=== PATIENT | male | born 1935 | race Caucasian/White ===

== ENCOUNTER 2020-02-15 09:00 | Outpatient (CLI) | payer MEDICARE, OTHER | END 2020-02-15 23:59 | disposition home health service (06) | LOC: WOU 09:00 | PROVIDERS: ATTEND Specialist | DX: L89.153 Pressure ulcer of sacral region, stage 3 (principal); L89.323 Pressure ulcer of left buttock, stage 3; L89.312 Pressure ulcer of right buttock, stage 2; L89.316 Pressure-induced deep tissue damage of right buttock; L89.521 Pressure ulcer of left ankle, stage 1; E11.9 Type 2 diabetes mellitus without complications; I69.354 Hemiplegia and hemiparesis following cerebral infarction affecting left non-dominant side; I10 Essential (primary) hypertension | CPT/HCPCS: A6209; G0463 ==